=== PATIENT | male | born 1955 | race Caucasian/White ===

== ENCOUNTER 2021-05-10 16:12 | Inpatient (IN) | payer MEDICARE, OTHER ==
[~2021-05-10] VITALS: Ht 177.8 cm; Wt 102.1 kg
[2021-05-10] MEDS ORDERED: HYDR-4077 PO (17:01)
[2021-05-10] MEDS ORDERED: ASPI-1420 PO (17:01)
[2021-05-10] MEDS ORDERED: CLON0.1T PO (17:01)
[2021-05-10] MEDS ORDERED: DEXA4TAB PO (17:01)
[2021-05-10] MEDS ORDERED: LOSA100T31 PO (17:01)
[2021-05-10] MEDS ORDERED: ROSU20TA32 PO (17:01)
[2021-05-10] MEDS ORDERED: IV CHEMO IV (17:01)
[2021-05-10] MEDS ORDERED: ONDA-97 PO (17:01)
[2021-05-10 17:21] LABS: BASOPHILS % (AUTO) 0.2 % (0.0-2.0); EOSINOPHILS % (AUTO) 0.7 % (0.0-6.0); HEMATOCRIT 34 % (39-51); HEMOGLOBIN 11.1 g/dL (13.5-17.5); LYMPHOCYTES # (AUTO) 0.7 K/uL (0.8-4.8); LYMPHOCYTES % (AUTO) 4.8 % (20.0-44.0); MEAN CORPUSCULAR HGB CONC 33 g/dl (31.0-36.0); MEAN CORPUSCULAR VOLUME 88 fL (80-96); MONOCYTES # (AUTO) 0.1 K/uL (0.1-1.30); MONOCYTES % (AUTO) 0.7 % (2.0-12.0); NEUTROPHILS # (AUTO) 14.2 K/uL (1.8-8.9); NEUTROPHILS % (AUTO) 93.6 % (43.0-81.0); PLATELET COUNT (AUTO) 152 K/uL (150-450); RED BLOOD CELL COUNT(AUTO) 3.85 MIL/uL (4.5-6.0); WHITE BLOOD COUNT (AUTO) 15.1 K/uL (4.3-11.0)
[2021-05-10 17:23] LABS: CALCIUM, SERUM 8.9 mg/dL (8.5-10.1); CARBON DIOXIDE 30 mmol/L (21-32); CHLORIDE 100 mmol/L (98-107); CREATININE 1.3 mg/dL (0.6-1.3); GLUCOSE 167 mg/dL (74-106); POTASSIUM 3.9 mmol/L (3.5-5.1); SODIUM SERUM 137 mmol/L (136-145); UREA NITROGEN, BLOOD 36 mg/dL (7-18)
[2021-05-10] MEDS ORDERED: ASPIRIN 325 MG TABLET PO ONE (18:00)
--- NOTE | 2021-05-10 18:00 | NUR ---
COVID ANTIGEN SWAB DONE AND SENT TO THE LAB
--- NOTE | 2021-05-10 18:20 | NUR ---
CALLED NURSING SUP REGARDING PT BED
[2021-05-10] MEDS ORDERED: hydrALAZINE HCL IV 20 MG VIAL IV ONE (18:30)
--- NOTE | 2021-05-10 18:35 | NUR ---
PATIENT REFUSED ASPIRIN 325 MG DESPITE EXPLAINING RISKS AND BENEFITS. DR GOLDBERG AWARE.
[2021-05-10] MEDS ORDERED: hydrALAZINE HCL IV 20 MG VIAL ONE (18:39)
[2021-05-10] MEDS ORDERED: NITROGLYCERIN 0.4 MG/TAB BOTTLE SL PRN (19:00)
[2021-05-10] MEDS ORDERED: ONDANSETRON HCL/PF 4 MG/2 ML VIAL IVP PRN (19:00)
--- NOTE | 2021-05-11 00:15 | NUR ---
MRSA SWAB COLLECTED AND SENT TO LAB. PATIENT'S BELONGINGS LIST DONE.
--- NOTE | 2021-05-11 04:47 | NUR ---
CLAIMS SPECIALIST AT PT'S BEDSIDE
[2021-05-11 05:00] LABS: BASOPHILS # (AUTO) 0.1 K/uL (0.0-0.2); BASOPHILS % (AUTO) 0.4 % (0.0-2.0); EOSINOPHILS % (AUTO) 1.7 % (0.0-6.0); HEMATOCRIT 33 % (39-51); LYMPHOCYTES # (AUTO) 1.4 K/uL (0.8-4.8); MEAN CORPUSCULAR HGB CONC 33 g/dl (31.0-36.0); MEAN CORPUSCULAR VOLUME 87 fL (80-96); MONOCYTES # (AUTO) 0.1 K/uL (0.1-1.30); MONOCYTES % (AUTO) 0.7 % (2.0-12.0); NEUTROPHILS # (AUTO) 13.3 K/uL (1.8-8.9); NEUTROPHILS % (AUTO) 88.2 % (43.0-81.0); PLATELET COUNT (AUTO) 130 K/uL (150-450); RED BLOOD CELL COUNT(AUTO) 3.77 MIL/uL (4.5-6.0); WHITE BLOOD COUNT (AUTO) 15.1 K/uL (4.3-11.0)
[2021-05-11 05:36] LABS: CALCIUM, SERUM 9.1 mg/dL (8.5-10.1); CREATININE 1.1 mg/dL (0.6-1.3); MAGNESIUM 1.9 mg/dL (1.8-2.4); PHOSPHORUS 3.8 mg/dL (2.5-4.9)
--- NOTE | 2021-05-11 07:12 | NUR ---
PT SLEPT WELL THROUGHOUT SHIFT. RFA #20G S/L PATENT AND INTACT. ALL NEEDS MET AT THIS TIME. VSS
[2021-05-11] MEDS ORDERED: ASPIRIN EC 81 MG TABLET.DR PO SCH (09:00)
[2021-05-11] MEDS ORDERED: METOPROLOL TARTRATE 25 MG TABLET PO SCH ×2 (09:00)
[2021-05-11] MEDS ORDERED: ASPIRIN 81 MG TAB.CHEW PO SCH (09:00)
[2021-05-11] MEDS ORDERED: LOSARTAN POTASSIUM 50 MG TABLET PO SCH (09:00)
[2021-05-11] MEDS ORDERED: IOHEXOL-350 100 ML VIAL IV ONE (09:07)
[2021-05-11] MEDS ORDERED: CT SWABBABLE VALVE TRANS SET 1 EA INFUS.SET MC ONE (09:08)
[2021-05-11] MEDS ORDERED: METOPROLOL TARTRATE INJ 5 MG/5 ML AMPUL ONE (09:08)
[2021-05-11] MEDS ORDERED: IV NS 0.9% 250 ML IV ONE (09:08)
[2021-05-11] MEDS ORDERED: NITROGLYCERIN 0.4 MG/TAB BOTTLE ONE ×2 (09:08→09:34)
--- NOTE | 2021-05-11 09:09 | NUR ---
PT TAKEN TO CT ANGIO
[2021-05-11] MEDS ORDERED: NITROGLYCERIN 0.4 MG/TAB BOTTLE SL ONE (09:30)
[2021-05-11] MEDS ORDERED: METOPROLOL TARTRATE INJ 5 MG/5 ML AMPUL IVP PRN (09:30)
[2021-05-11] MEDS ORDERED: hydrALAZINE HCL 50 MG TABLET ONE ×2 (09:32→13:12)
[2021-05-11] MEDS ORDERED: ASPIRIN EC 81 MG TABLET.DR PO ONE (09:33)
[2021-05-11] MEDS ORDERED: METOPROLOL TARTRATE 25 MG TABLET ONE (09:33)
[2021-05-11] MEDS ORDERED: LOSARTAN POTASSIUM 50 MG TABLET ONE (09:33)
--- NOTE | 2021-05-11 09:58 | NUR ---
PT BACK FROM CT
[2021-05-11] MEDS: hydrALAZINE HCL 50 MG TABLET PO SCH ×2 (10:01→13:12)
[2021-05-11] MEDS ORDERED: AMLO-213 PO (12:52)
--- NOTE | 2021-05-11 14:27 | NUR ---
IV removed. Catheter intact and site benign. Pressure and 4x4 applied to site. No bleeding noted.Patient discharged to home in stable condition. Written and verbal after care instructions given. Patient verbalizes understanding of instruction. Patient daughter Radha was notified and is arranging transportion for her father to be picked up
[2021-05-11 14:39] VITALS: BP 176/81
[2021-05-11] MEDS ORDERED: CLONIDINE HCL 0.1 MG TABLET PO SCH (18:00)
[2021-05-11] MEDS ORDERED: ATORVASTATIN 40 MG TABLET PO SCH (22:00)
== END 2021-05-11 14:25 | disposition home or self-care (01) | DRG 302 ==
LOC: ER 16:15 → TRANSITION 18:30
PROVIDERS: ADMIT Internal Medicine; ATTEND Internal Medicine
DX: I25.110 Atherosclerotic heart disease of native coronary artery with unstable angina pectoris (principal); N17.0 Acute kidney failure with tubular necrosis; C34.90 Malignant neoplasm of unspecified part of unspecified bronchus or lung; I10 Essential (primary) hypertension; I25.10 Atherosclerotic heart disease of native coronary artery without angina pectoris; D63.8 Anemia in other chronic diseases classified elsewhere; E66.01 Morbid (severe) obesity due to excess calories; E78.5 Hyperlipidemia, unspecified; Z87.891 Personal history of nicotine dependence; Z95.1 Presence of aortocoronary bypass graft; Z79.899 Other long term (current) drug therapy; D72.829 Elevated white blood cell count, unspecified; Z90.2 Acquired absence of lung [part of]; Z20.822 Contact with and (suspected) exposure to COVID-19
CPT/HCPCS: 36415; 71045-TC; 75574; 80048-TC; 80061-TC; 83735-TC; 84100-TC; 84484-TC; 85025-TC; 85378-TC; 87081-TC; 93307-TC; G0378; J0360; J3490; J7050; Q9967